=== PATIENT | female | born 1990 | race Caucasian/White ===

== ENCOUNTER 2019-10-14 07:50 | Outpatient (CLI) | payer BC ==
--- NOTE | 2019-10-14 10:39 | ULT ---
ULTRASOUND RIGHT BREAST LIMITED: DATE: 10/14/2019. HISTORY: A 29-year-old female with palpable lump in right breast. TECHNIQUE: Focused ultrasound of right upper outer quadrant specifically in the area of palpable lump. FINDINGS: At the 10 o'clock position, approximately 6 cm from the nipple, there are 2 small hypoechoic lesions from each other by a distance of approximately 1.5 cm. One of them measures approximately 0.4 x 0.2 x 0.4 cm. The other one measures 0.4 x 0.3 x 0.3 cm. There is no acoustic shadowing. No internal blood flow demonstrated by Doppler. These are nonspecific, but in a patient of this age, they are highly likely to be benign, such as sma ll cysts or lymph nodes. Breast cancer is less likely. IMPRESSION: 1. BI-RADS 3 - probably benign. Short interval followup suggested. 2. Two tiny hypoechoic lesions in the right upper outer quadrant. 3. Recommend serial followup right breast ultrasounds at 6 months, 1 year, and 2 years. POS: [facility]
== END 2019-10-14 07:51 | disposition home or self-care (01) ==
LOC: BICULT 07:50
PROVIDERS: ATTEND Physician Assistant
DX: N63.13 Unspecified lump in the right breast, lower outer quadrant (principal); N64.89 Other specified disorders of breast

== ENCOUNTER 2020-04-10 07:54 | Outpatient (CLI) | payer BC ==
--- NOTE | 2020-04-10 08:15 | ULT ---
EXAM: US Breast Limited Rt PROVIDED CLINICAL HISTORY: Right breast masses COMPARISON: 10/14/2019 FINDINGS: The hypoechoic foci at the outer aspect of the right breast at the 9 to 10:00 position are redemonstr ated, stable in size. On today's examination, fatty luda and hilar blood flow are demonstrated, compatible with intramammary lymph nodes. IMPRESSION: Masses described on prior ultrasound demonstrated to be intramammary lymph nodes on today's study. No further sonographic follow-up is necessary. BI-RADS 2 -- benign findings
== END 2020-04-10 07:55 | disposition home or self-care (01) ==
LOC: BICULT 07:54
PROVIDERS: ATTEND Obstetrics & Gynecology
DX: R92.2 Inconclusive mammogram (principal); N61.0 Mastitis without abscess